=== PATIENT | male | born 1970 | race Caucasian/White ===

== ENCOUNTER → 2021-05-03 07:36 | Outpatient (CLI) | payer OTHER, MEDICAID, SELFPAY ==
--- NOTE | 2021-05-03 | DI.ECHO.S_ITS ---
[facility] +---------+ : : [address] : : : : [id number] : : : : Phone: [phone] +---------+ Echocardiogram Report + + :Name: MEJIA FONSECA Study Date: 05/03/2021 Height: 72 in : :[facility] ReadingLocation: Weight: 170 lb : : Gender: Male BSA: 2.0 m2 : :: 1970 Age: 50 yrs BP: 129/74 mmHg: :Reason For Study: TIA : :Ordering Physician: EULALIA : :DEWEY Performed By: Cristobal Barrow : :Referring: DEWEY ESTEBAN : + + Interpretation Summary The atrial septum is aneurysmal. Injection of contrast documented an interatrial shunt. The left ventricle is normal in size. The ejection fraction is estimated to be 65-70%. There is no LV thrombus. The right ventricle is normal in size and function. No significant valvular pathology seen. The IVC is of normal diameter and collapses greater than 50% with a sniff. This suggests a low right atrial pressure of 3 mm Hg. The patient was in sinus rhythm with heart rates between 66-73 bpm during the exam. Procedure: A two-dimensional transthoracic echocardiogram with color flow and Doppler was performed. The study quality was technically adequate. There is no prior echocardiogram noted for this patient. The patient was in sinus rhythm with heart rates between 66-73 bpm during the exam. Left Ventricle: The left ventricle is normal in size. There is mild concentric left ventricular hypertrophy. There is no thrombus. Left ventricular systolic function is normal. The ejection fraction is estimated to be 65-70%. There are no focal wall motion abnormalities. Diastolic parameters suggest a relaxation abnormality of the left ventricle, consistent with probable normal filling pressures. Right Ventricle: The right ventricle is normal in size and function. Atria: The left atrium is mildly dilated. Right atrial size is normal. Injection of contrast documented an interatrial shunt. The atrial septum is aneurysmal. Mitral Valve: The mitral valve leaflets appear mildly thickened, but open well. There is no mitral regurgitation. Aortic Valve: The aortic valve is normal in structure and function. The aortic valve is trileaflet. There is discrete nodular thickening of the non- coronary cusp. The aortic valve is slightly calcified. There is no aortic valve stenosis. No aortic regurgitation is present. Tricuspid Valve: The tricuspid valve is normal in structure and function. There is a trace or physiologic amount of tricuspid regurgitation. Pulmonary artery pressures cannot be estimated because of the lack of a measurable TR jet velocity but the IVC suggests a CVP of around 3 mmHg. Pulmonic Valve: The pulmonic valve is normal in structure and function. There is no pulmonic valvular regurgitation. Great Vessels: The aortic root is normal size. The dimensions of the ascending aorta are normal. The IVC is of normal diameter and collapses greater than 50% with a sniff. This suggests a low right atrial pressure of 3 mm Hg. Pericardium/ Pleura There is no pericardial effusion. MMode/2D Measurements & Calculations LVIDd: 4.5 cm LVOT diam: 2.3 cm LVIDs: 2.9 cm Ao root diam: 3.8 cm FS: 35.6 % asc Aorta Diam: 3.6 cm IVSd: 1.4 cm LVPWd: 1.2 cm LV farr. diameter/BSA (cm/m^2): 2.3 LV sys. diameter/BSA (cm/m^2): 1.5 LA dimension: 3.4 cm RA long axis: 6.0 cm LA A2 area: 23.5 cm2 LA A4 area: 23.7 cm2 LA length (vol): 6.2 cm LA vol: 76.3 ml LA vol index: 38.4 ml/m2 TAPSE_phl: 1.7 cm Doppler Measurements & Calculations Ao V2 max: 156.0 cm/sec LVOT Max Bony: 147.0 cm/sec Ao V2 mean: 121.0 cm/sec LV V1 max P.6 mmHg Ao max P.0 mmHg LV V1 VTI: 32.9 cm Ao mean P.0 mmHg PERRY(I,D): 4.0 cm2 Ao V2 VTI: 34.1 cm PERRY(V,D): 3.9 cm2 sev ratio: 0.96 PERRY indexed to BSA (cm^2/m^2): 2.0 MV E max bony: 75.5 cm/sec SV(LVOT): 136.7 ml MV A max bony: 79.9 cm/sec MV E/A: 0.94 Med Peak E' Bony: 7.5 cm/sec E/E' med: 10.0 Lat Peak E' Bony: 10.7 cm/sec E/E' lat: 7.1 E/e' average: 8.5 MV dec time: 0.32 sec AV VR_phl: 0.94 MV P1/2t-pr_phl: 93.0 msec EPRRY(VTI)/BSA_phl: 2.0 Reading Physician:[id number] PM
--- NOTE | 2021-05-03 | DI.US.S_ITS ---
PROCEDURE: US CAROTID DOPPLER BI INDICATIONS: 6 WEEKS POST TIA TECHNIQUE: Color and pulse Doppler interrogation was performed of both carotid systems, with image documentation and velocity measurements. COMPARISON: None. FINDINGS: Stenosis calculations are based on SRU (Society of Radi[employer] in Ultras[employer]) criteria. The flow velocities and the arterial waveforms are normal within both carotid arterial systems. Atherosclerotic plaque is seen on both sides. The estimated degree of internal carotid artery stenosis is less than 50%. Antegrade flow is confirmed within both vertebral arteries. IMPRESSION: No hemodynamically significant stenosis is seen. Atherosclerotic plaque is noted bilaterally. Dictated by: Andrew Torres M.D. on 05/03/2021 at 9:41 Approved by: Andrew Torres M.D. on 05/03/2021 at 9:41
== END ==
PROVIDERS: PCP Family Medicine; Referring Provider Family Medicine; Visit Provider Family Medicine
DX: Z86.73 Personal history of transient ischemic attack (TIA), and cerebral infarction without residual deficits (principal)
CPT/HCPCS: 93306; 93880

== ENCOUNTER → 2021-07-19 10:37 | Outpatient (CLI) | payer OTHER, MEDICAID, SELFPAY ==
[2021-07-19 13:30] LABS: Cortisol Random 7.73 ug/dL
[2021-08-01 09:36] LABS: Aldosterone/Renin Activity Rat 4.2 (0.0-30.0); Plama Renin, LC/MS/MS 0.993 ng/mL/hr (0.167-5.380)
== END ==
PROVIDERS: PCP Family Medicine; Referring Provider Nurse Practitioner Pediatrics; Visit Provider Nurse Practitioner Pediatrics
DX: Q21.1 Atrial septal defect (principal); I10 Essential (primary) hypertension; I63.50 Cerebral infarction due to unspecified occlusion or stenosis of unspecified cerebral artery
CPT/HCPCS: 36415; 82088; 82384; 82533; 84244